=== PATIENT | male | born 1975 | race Caucasian/White ===

== ENCOUNTER 2017-09-25 12:55 | Emergency (ER) | payer OTHER ==
[2017-09-25 13:06] VITALS: BP 152/97; PULSE 89; RESP 20; TEMP 97.5; O2SAT 97
[2017-09-25] MEDS ORDERED: NEXI40CA PO (13:18)
[2017-09-25] MEDS ORDERED: AUGM875T3 PO (13:57)
--- NOTE | 2017-09-25 13:58 | PD ---
HPI Chief Complaint: ENT Complaint Time Seen by Provider: 13:52 Travel History International Travel<30 days: No Contact w/Intl Traveler<30days: No Traveled to known affect area: No History of Present Illness HPI 42-year-old male here with a complaint sore throat. Left greater than right. He denies fever or chills. He reports over the last week he has had nasal congestion, sore throat, cough. He has pain with swallowing. No difficulty eating or drinking. Symptom severity is moderate. No alleviating factors. PFSH Past Medical History Medical History: Denies Significant Hx GERD: Yes Tetanus Vaccination: > 5 Years Influenza Vaccination: No Past Surgical History Other Surgery: Yes (HERNIA REPAIR) Social History Alcohol Use: Yes (SOCIAL) Tobacco Use: No Substance Use: No Allergies-Medications (Allergen,Severity, Reaction): Coded Allergies: No Known Drug Allergies (Verified Allergy, Unknown, 09/25/17) Reported Meds & Prescriptions Reported Meds & Active Scripts Active Reported Nexium (Esomeprazole DR) 40 Mg Capdr 40 Mg PO DAILY Review of Systems Except as stated in HPI: all other systems reviewed are Neg General / Constitutional: No: Fever Eyes: No: Visual changes HENT: Positive: Sore Throat, Congestion Cardiovascular: No: Chest Pain or Discomfort Respiratory: Positive: Cough Gastrointestinal: No: Abdominal Pain Physical Exam Narrative GENERAL: Alert male. Nontoxic appearing. Well-hydrated. SKIN: Warm and dry. No rash. HEAD: Normocephalic. EYES: No injection or drainage. NECK: Supple, trachea midline. No lymphadenopathy. THROAT: Pharyngeal erythema, very mild tonsillar hypertrophy with scant exudate. Uvula is midline. Airway is patent. CARDIOVASCULAR: Regular rate and rhythm RESPIRATORY: Breath sounds equal bilaterally. No accessory muscle use. Data Data Last Documented VS Vital Signs Date Time Temp Pulse Resp B/P (MAP) Pulse Ox O2 Delivery O2 Flow Rate FiO2 09/25/17 13:06 97.5 89 20 152/97 (115) 97 MDM Medical Decision Making Medical Screen Exam Complete: Yes Emergency Medical Condition: Yes Differential Diagnosis Tonsillitis, peritonsillar abscess, pharyngitis Narrative Course 42-year-old male here with sore throat. Left greater than right. He is well- appearing. His vital signs are stable. He is well-hydrated. He has pharyngeal erythema with mild tonsillar hypertrophy. I do not suspect peritonsillar abscess. Patient reports on Augmentin and instructed to follow- up his primary doctor. Diagnosis Primary Impression: Pharyngitis Qualified Codes: J02.9 - Acute pharyngitis, unspecified Referrals: Primary Care Physician Departure Forms: Tests/Procedures, Work Release Enter return to work date: Sep 27, 2017 Scripts Amoxicillin-Clavulanate (Augmentin) 875-125 Mg Tab 1 TAB PO BID for Infection, #20 TAB 0 Refills Prov: Susana Sommer 09/25/17 Disposition: DISCHARGE HOME Condition: Stable Susana Sommer Sep 25, 2017 13:58
== END 2017-09-25 14:06 | disposition home or self-care (01) ==
LOC: PHEFT 12:55
DX: J02.9 Acute pharyngitis, unspecified (principal); K21.9 Gastro-esophageal reflux disease without esophagitis
CPT/HCPCS: 99283